=== PATIENT | female | born 1985 | race Caucasian/White ===

== ENCOUNTER 2016-06-02 14:19 | Emergency (ER) | payer OTHER ==
[~2016-06-02] VITALS: Ht 175.3 cm; Wt 90.9 kg
[2016-06-02 14:21] VITALS: BP 143/86; PULSE 53; RESP 18; O2SAT 99
[2016-06-02] MEDS ORDERED: OMEP20TA24 PO (14:27)
[2016-06-02] MEDS ORDERED: FLUT9.9S NOSTRIL (14:27)
[2016-06-02] MEDS ORDERED: CHOL100043 PO (14:27)
[2016-06-02] MEDS ORDERED: CETI10CA PO (14:27)
--- NOTE | 2016-06-02 14:46 | ED.REPORT ---
HPI-Allergic Reaction Date of Service Jun 02, 2016 ED Provider: Sony Perez MD 31 year old female presents to the ER via EMS complaining of difficulty breathing secondary to suspected allergic reaction onset just prior to arrival after eating phad telugu. 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 Today's symptoms are similar to prior, though less severe which causes her to suspect food cross-contamination. Associated symptoms include chest pain, dizziness, and throat discomfort. Patient denies tongue swelling. Symptoms were treated with 100mg Benadryl prior to arrival, with some relief. Nursing Notes Stated Complaint: ALLERGIC REACTION Chief Complaint: Allergic Reaction Nursing Notes Reviewed: Yes Allergies: Coded Allergies: wheat (Verified Allergy, Severe, Anaphylaxis, 06/02/16) Sulfa (Sulfonamide Antibiotics) (Verified Allergy, Intermediate, hives, ) adhesive tape (Verified Allergy, Intermediate, rash , blisters, 06/02/16) latex (Verified Allergy, Intermediate, hives , rash, 06/02/16) sulfamethoxazole (Verified Allergy, Intermediate, hives, 06/02/16) trimethoprim (Verified Allergy, Intermediate, hives, 06/02/16) lactase (Verified Adverse Reaction, Severe, vomiting, 06/02/16) Scheduled Cetirizine HCl (Zyrtec) 10 Mg Capsule 10 MG PO HS Cholecalciferol (Vitamin D3) (Vitamin D) 1,000 Unit Tablet 1,000 UNIT PO DAILY Fluticasone Propionate (Flonase Allergy Relief) 50 Mcg/Actuation [place].susp 1 SPRAY NOSTRIL DAILY Omeprazole Magnesium (Prilosec Otc) 20 Mg Tablet.dr 20 MG PO DAILY General Time Seen by MD: 14:46 Chief Complaint Allergic reaction, Difficulty breathing Hx Obtained From: Patient Arrived By: Ambulance Onset Occurred: Just prior to arrival Symptom Duration: Since onset Associated with: Reports: Lightheaded/dizziness, Denies: Tongue swollen Related History: Reports: Anaphylaxis, Known allergy Similar Sx Previous: Yes Past Medical History Past Medical History Wheat allergy Smoking History Unknown if Ever Smoker Social History Other Social History: Good social support Ambulatory Status Independent Review of Systems Constitutional: Denies: Chills, Fever Ears / Nose / Throat: Reports: Throat pain, Denies: Throat swelling, Tongue swelling Respiratory: Reports: Shortness of breath GI: Denies: Nausea, Vomiting Allergy / Immune: Reports: Allergic reaction, Anaphylaxis Complete sys rev & neg: except as marked. Physical Exam Initial Vital Signs Vital Signs (First) Date Time Temp Pulse Resp B/P Pulse Ox O2 Delivery O2 Flow Rate FiO2 06/02/16 14:21 36.4 53 18 143/86 99 Room Air Initial VS: Reviewed Head / Eyes: Atraumatic, Normocephalic Neck: Supple, Non-tender, Full range of motion Extremities: Vascular intact, Neuro intact, No swelling, No tenderness Neurologic: Alert, Oriented, Nonfocal Psychiatric: Mood/affect normal, Behavior normal, Normal thought content General/Constitutional: Awake, Alert, Well developed, Well nourished Respiratory / Chest: Breath sounds NL, Breath sounds = bilat, No respiratory distress, No rales, No rhonchi, No wheezing, No retractions, No stridor Cardiovascular: Heart rate NL, Regular rhythm, Heart sounds NL, Peripheral circulation NL Skin: Warm, Dry, Intact ENT: Airway patent, Mucous membranes moist, Pharynx NL Oropharynx clear. No signs of anaphylaxis. Interpretation & Diagnostics Lab Results Interpretation Test 06/02/16 14:38 Hold Purple Top Tube Received (Received) Hold Blue Top Tube Received (Received) Hold Red Top Tube Received (Received) Hold [place] Top Tube Received (Received) Re-Eval/Medical Decision Med Decision/Clinical Course 31-year-old female history of allergic reaction to the presenting with allergic reaction after eating [employer] food. She reported slight chest discomfort and subjective shortness of breath on arrival. Her vitals were stable and she had no wheezes. She was given Benadryl and her symptoms resolved. She was also given one dose of Solu-Medrol. She was observed for greater than 2 hours and felt much better. She will be discharged home with return precautions. She does have an EpiPen and feels comfortable going home. Her symptoms have resolved. Re-Evaluation/Progress : Time of Eval: 16:37 Re-Evaluation/Progress Note: Patient is now accompanied by a male environmental systems coordinator. Discussed plan to discharge. Patient is amenable to the plan. Return precautions given. All other questions addressed. Counseled Regarding: Diagnosis, Lab results, Need for follow-up, When/why to return to ED Discharge & Departure Primary Impression: Allergic reaction Disposition: Home Discharge Condition All VS Reviewed: Yes Condition: Stable Patient Instructions: Anaphylaxis (DC) Additional Instructions: I am glad that you are feeling better. I believe that your symptoms were indeed caused by a food allergy as you suspected. Follow-up with your primary care provider in 1-2 days. Return to the ER if you develop difficulty breathing, throat or tongue swelling , signs or symptoms of anaphylaxis, or any other concerning symptoms. Scribe Attestation Portions of this note were transcribed by Bryan Thomas. I, Dr. Perez, personally performed the history, physical exam and medical decision-making; I reviewed and confirmed the accuracy of the information in the transcribed note. Signed by: Laurie Zaragoza, 06/02/2016 and 16:44 Sony Perez MD Jun 02, 2016 14:46 BRYAN THOMAS Jun 02, 2016 14:55
[2016-06-02] MEDS ORDERED: Albuterol 2.5 mg/3 mL Inhalation Solution NEB ONE (14:55)
[2016-06-02] MEDS ORDERED: MethylprednisoLONE Sodium Succinate 62.5 mg/mL 2 mL Inj IVPUSH ONE (14:55)
[2016-06-02 15:07] VITALS: PULSE 52; RESP 16; O2SAT 100
[2016-06-02 17:14] VITALS: BP 110/60; PULSE 61; RESP 20; O2SAT 100
[2016-06-02 17:20] VITALS: BP 110/60; PULSE 61; RESP 20; O2SAT 100
== END 2016-06-02 17:24 | disposition home or self-care (01) ==
LOC: SED 14:19
DX: T78.1XXA Other adverse food reactions, not elsewhere classified, initial encounter (principal); R06.00 Dyspnea, unspecified; X58.XXXA Exposure to other specified factors, initial encounter; Y93.89 Activity, other specified; Y92.89 Other specified places as the place of occurrence of the external cause; Y99.8 Other external cause status; R42 Dizziness and giddiness; R06.02 Shortness of breath; Z88.2 Allergy status to sulfonamides; Z91.018 Allergy to other foods; Z88.8 Allergy status to other drugs, medicaments and biological substances; Z91.040 Latex allergy status
CPT/HCPCS: 96374; 99284; J2930; J7613